=== PATIENT | male | born 1995 | race American Indian/Alaskan Native ===

== ENCOUNTER 2018-10-04 23:33 | Emergency (ER) | payer SELFPAY ==
[2018-10-04] MEDS ORDERED: TYLENOL ONE (23:57)
[2018-10-04 23:59] VITALS: BP 151/91
[2018-10-04] MEDS ORDERED: TYLENOL PO ONE (23:59)
[2018-10-05] MEDS ORDERED: IBUPROFEN PO ONE (03:01)
[2018-10-05] MEDS ORDERED: IBUPROFEN ONE (03:03)
--- NOTE | 2018-10-05 03:04 | Emergency Department Report ---
ED ENT HPI - General Chief complaint: Dental/Oral Stated complaint: ABCESS LEFT SIDE OF MOUTH Time Seen by Provider: 10/05/18 03:00 Source: patient Mode of arrival: Ambulatory Limitations: No Limitations - History of Present Illness Initial comments: 23-year-old -Greek male presents to the emergency room for 1 month of toothache. Patient reports that he's been taking his grandmother's [place] for pain management. Patient denies any fever chills or nausea no vomiting. Patient denies any past medical history currently takes no medications on a daily basis and has no known drug allergies. MD complaint: tooth pain -: month(s) (1) Location: tooth # (17) Severity: severe Severity scale (0 -10): 10 Quality: stabbing, sharp Consistency: constant Improves with: none Worsens with: none Context- Dental: poor dental care - Related Data Previous Rx's Medication Instructions Recorded Last Taken Type Amoxicillin/Potassium Clav 1 each PO BID 10 Days #20 tablet 10/05/18 Unknown Rx [Augmentin 875-125 Tablet] Ibuprofen [Motrin 800 MG tab] 800 mg PO Q8HR PRN #30 tablet 10/05/18 Unknown Rx Allergies Allergy/AdvReac Type Severity Reaction Status Date / Time No Known Allergies Allergy Unverified 10/04/18 23:58 ED Dental HPI - General Chief complaint: Dental/Oral Stated complaint: ABCESS LEFT SIDE OF MOUTH Time Seen by Provider: 10/05/18 03:00 Source: patient Mode of arrival: Ambulatory Limitations: No Limitations - Related Data Previous Rx's Medication Instructions Recorded Last Taken Type Amoxicillin/Potassium Clav 1 each PO BID 10 Days #20 tablet 10/05/18 Unknown Rx [Augmentin 875-125 Tablet] Ibuprofen [Motrin 800 MG tab] 800 mg PO Q8HR PRN #30 tablet 10/05/18 Unknown Rx Allergies Allergy/AdvReac Type Severity Reaction Status Date / Time No Known Allergies Allergy Unverified 10/04/18 23:58 ED Review of Systems ROS: Stated complaint: ABCESS LEFT SIDE OF MOUTH Other details as noted in HPI Comment: All other systems reviewed and negative Constitutional: denies: chills, fever ENT: dental pain ED Past Medical Hx - Past Medical History Previous Medical History?: No - Surgical History Past Surgical History?: No - Social History Smoking Status: Current Every Day Smoker Substance Use Type: None - Medications Home Medications: Home Medications Medication Instructions Recorded Confirmed Last Taken Type Amoxicillin/Potassium Clav 1 each PO BID 10 Days #20 tablet 10/05/18 Unknown Rx [Augmentin 875-125 Tablet] Ibuprofen [Motrin 800 MG tab] 800 mg PO Q8HR PRN #30 tablet 10/05/18 Unknown Rx ED Physical Exam - General Limitations: No Limitations General appearance: alert, in no apparent distress - Head Head exam: Present: atraumatic, normocephalic - Eye Eye exam: Present: normal appearance - Expanded ENT Exam Expanded Teeth exam: Present: dental tenderness # (17), gingival enlargement - Neurological Exam Neurological exam: Present: alert, oriented X3 - Psychiatric Psychiatric exam: Present: normal affect, normal mood - Skin Skin exam: Present: warm, dry, intact, normal color. Absent: rash ED Course Vital Signs 10/04/18 23:56 Temperature 98.6 F Pulse Rate 75 Respiratory 18 Rate Blood Pressure 151/91 O2 Sat by Pulse 99 Oximetry ED Medical Decision Making - Medical Decision Making Patient has been evaluated by this provider in fast track. Ibuprofen 800 given for pain management Patient will be discharged with a referral to several community dentist. Patient will be discharged home on Augmentin and ibuprofen. Critical care attestation.: If time is entered above; I have spent that time in minutes in the direct care of this critically ill patient, excluding procedure time. ED Disposition Clinical Impression: Dental abscess Disposition: DC-01 TO HOME OR SELFCARE Is pt being admited?: No Does the pt Need Aspirin: No Condition: Stable Instructions: Dental Abscess (ED) Additional Instructions: Please complete antibiotics as prescribed. Pain medication as needed and follow-up with the dentist I have listed several below for your convenience. Prescriptions: Amoxicillin/Potassium Clav [Augmentin 875-125 Tablet] 1 each PO BID 10 Days #20 tablet Ibuprofen [Motrin 800 MG tab] 800 mg PO Q8HR PRN #30 tablet PRN Reason: Pain , Severe (7-10) Referrals: [facility] [Outside] - 3-5 Days [facility] [Outside] - 3-5 Days [facility] [Outside] - 3-5 Days Forms: Work/School Release Form(ED)
== END 2018-10-05 03:00 | disposition home or self-care (01) ==
LOC: ED 23:33
DX: K04.7 Periapical abscess without sinus (principal); F17.200 Nicotine dependence, unspecified, uncomplicated
CPT/HCPCS: 99282